=== PATIENT | male | born 1960 | race Caucasian/White ===

== ENCOUNTER 2017-04-01 12:33 | Day surgery (SDC) | payer OTHER ==
[2017-04-01] VITALS (19 sets, daily range): BP systolic 126–148; BP diastolic 80–91; PULSE 80–94; RESP 14–22; Ht 170.2 cm; Wt 99.8 kg
[~2017-04-01] VITALS: Ht 170.2 cm; Wt 99.8 kg
--- NOTE | 2017-04-01 15:11 | HPN ---
Date/Time of Note Date/Time of Note DATE: 04/01/17 TIME: 15:11 Interval H&P Admission Note Pt. seen H&P reviewed: No system changes JEANINE BAEZ Apr 01, 2017 15:11
[2017-04-01] MEDS ORDERED: LIDOCAINE 1% (MPF) 30 ML INJ ONE (15:24)
[2017-04-01] MEDS ORDERED: BUPIVACAINE 0.25% (MPF) 30 ML INJ ONE (15:24)
[2017-04-01] MEDS ORDERED: ROCURONIUM 50 MG INJ ONE (15:38)
[2017-04-01] MEDS ORDERED: NEOSTIGMINE 3 MG/3 ML SYRINGE ONE ×2 (15:38→17:18)
[2017-04-01] MEDS ORDERED: MEPERIDINE 100 MG INJ ONE (15:38)
[2017-04-01] MEDS ORDERED: LIDOCAINE 2% (SDV) 5 ML INJ ONE (15:38)
[2017-04-01] MEDS ORDERED: GLYCOPYRROLATE 1 MG INJ ONE (15:38)
[2017-04-01] MEDS ORDERED: SUCCINYLCHOLINE CHLORIDE 100 MG/5 ML SYG IV ONE (15:38)
[2017-04-01] MEDS ORDERED: PROPOFOL 20 ML ONE (15:38)
--- NOTE | 2017-04-01 16:03 | RADRPT ---
PROCEDURE: XR Chest. CLINICAL INDICATION: Preoperative. Right distal radius osteotomy. TECHNIQUE: Single frontal view. COMPARISON: None. FINDINGS: The lungs are clear. The heart size is normal. There is no pleural effusion. There is no pneumothorax. IMPRESSION: 1. Normal chest radiograph. RPTAT: QQ .Pranav Uribe MD, MD Date Time Electronically viewed and signed by .Pranav Uribe MD, MD on 04/01/2017 16:03 .R/
[2017-04-01] MEDS ORDERED: POLYMYXIN/BACITRACIN 1L IRRIG ONE (16:04)
[2017-04-01] MEDS ORDERED: LIDOCAINE 1% (MDV) 50 ML INJ INJ ONE (16:20)
[2017-04-01] MEDS ORDERED: HYDROmorphONE (0.2 MG/ML) 10ML SYG IV PRN ×3 (16:30)
[2017-04-01] MEDS ORDERED: EPHEDrine SULFATE 50 MG/5 ML SYG IV PRN (16:30)
[2017-04-01] MEDS ORDERED: FENTAnyl 50 MCG/ML VIAL IV PRN ×3 (16:30)
[2017-04-01] MEDS ORDERED: METOCLOPRAMIDE 10 MG INJ IV PRN (16:30)
[2017-04-01] MEDS ORDERED: MIDAZOLAM 1 MG/ML 2 ML INJ IV PRN (16:30)
[2017-04-01] MEDS ORDERED: DIPHENHYDRAMINE 50 MG INJ IV PRN (16:30)
[2017-04-01] MEDS ORDERED: hydrALAzine 20 MG INJ IV PRN (16:30)
[2017-04-01] MEDS ORDERED: ONDANSETRON 4 MG INJ IV PRN (16:30)
[2017-04-01] MEDS ORDERED: LABETALOL HCL 20MG INJ IV PRN (16:30)
[2017-04-01] MEDS ORDERED: OXYCODONE/ACETAMINOPHEN (5/325) TAB PO PRN ×2 (16:30)
[2017-04-01] MEDS ORDERED: MEPERIDINE 25 MG INJ IV PRN (16:30)
[2017-04-01] MEDS ORDERED: ONDANSETRON 4 MG INJ ONE (17:17)
[2017-04-01] MEDS ORDERED: CEFAZOLIN 1 GM INJ ONE (17:24)
[2017-04-01] MEDS ORDERED: BUPIVACAINE 0.5% (MPF) 30 ML INJ EPI ONE (17:35)
--- NOTE | 2017-04-01 17:50 | OPPN ---
Date/Time of Note Date/Time of Note DATE: 04/01/17 TIME: 17:48 Operative Report Preoperative Diagnosis right distal radius malunion, carpal tunnel syndrome, EPL tendon adhesion Postoperative Diagnosis right distal radius malunion, carpal tunnel syndrome, EPL tendon adhesion Operation/Procedure Performed open treatment of right distal radius malunion with osteotomy, plate and screws - right carpal tunnel release, open- right wrist EPL tendon tenolysis Surgeon see signature line inventory assistant none Anesthesia: general Estimated blood loss: 0 - 10 ml's Transfusion Required none Specimen none Grafts/Implants none Complications none JEANINE BAEZ Apr 01, 2017 17:50
--- NOTE | 2017-04-01 18:30 | OPR ---
DATE OF OPERATION: 04/01/2017 SURGEON: Kenneth Villaseñor MD ANESTHESIA: General. PREOPERATIVE DIAGNOSIS: 1. Right distal radius fracture malunion. 2. Right carpal tunnel syndrome. 3. Right wrist extensor pollicis longus tendon adhesions. POSTOPERATIVE DIAGNOSIS: 1. Right distal radius fracture malunion. 2. Right carpal tunnel syndrome. 3. Right wrist extensor pollicis longus tendon adhesions. OPERATION PERFORMED: 1. Open treatment of right distal radius fracture malunion with osteotomy, plate and screw fixation. 2. Right carpal tunnel release, open. 3. Right wrist extensor pollicis longus tenolysis. OPERATIVE FINDINGS: 1. Extension deformity at right distal radius with fracture malunion. 2. Compression of the right median nerve at the carpal tunnel. 3. Adhesions of the EPL tendon within the fracture site dorsally. INDICATIONS FOR PROCEDURE: A 56-year-old male with injury to the right wrist. He was seen in clinic and diagnosed with a distal radius fracture malunion. He had persistent pain due to the fracture malunion and difficulty with function due to limited flexion. He also had pain in the mid carpal joint. He had numbness in the right hand. He had difficulty with thumb range of motion. We discussed the options and patient elected to proceed with surgical intervention understanding the risks, benefits. OPERATIVE PROCEDURE: The patient was seen in the preoperative area. All further questions were answered. Again, he gave informed consent understanding the risks, benefits. He has taken to the operative suite and placed in supine position. He was placed under general anesthesia and tourniquet placed on the right upper extremity. Right upper extremity was prepped with ChloraPrep stick and draped in usual sterile fashion. Ancef 2 grams IV was given and Esmarch bandage was used to exsanguinate the extremity and tourniquet inflated to 250 mmHg. Attention was first turned to the carpal tunnel release and a 2 cm incision on the base of the palm was utilized with sharp dissection carried down through skin and subcutaneous tissue. The palmar aponeurosis was identified and was incised along its ulnar border. Retractors were deepened and the transverse carpal ligament was incised along its ulnar border approximately 3 mm radial to the hook of the hamate. The distal extent of the transverse carpal ligament was identified under direct visualization and was divided. Attention turned proximally. In the proximal extent, the transverse carpal ligament was divided under direct visualization. The wound was copiously irrigated. Skin closed with 4-0 nylon. Attention turned to the distal radius fracture and a modified volar Renato approach to the distal radius was utilized with sharp dissection carried down through skin and subcutaneous tissue. The FCR sheath was incised and FCR tendon retracted ulnarly. The FCR sub sheath incised and FPL tendon retracted ulnarly. The pronator quadratus was incised along its radial and distal borders using Bovie electrocautery and the fracture site was identified with approximately 25 degrees of extension of the fracture site beyond neutral. The fracture site was dissected around radially and ulnarly and attention was then turned to the dorsum of the wrist. A 2 cm incision of the dorsum of the wrist over Ole's tubercle was utilized. Sharp dissection was carried down through skin and subcutaneous tissue. The EPL tendon sheath was identified and was incised along its course obliquely around Ole's tubercle. The EPL tendon was brought out of its tunnel and there were fracture fragments and scar tissue at the deep aspect of the EPL tendon which were impinging. The EPL tendon was transposed and the floor was debrided for a smooth surface. Attention turned back volarly and an oscillating saw was used to create an osteotomy in line with the joint surface. An osteotome was used to complete the osteotomy dorsally and the fracture was brought in a more anatomic position. A [employer] distal radius plate was placed over the volar aspect of the distal radius and 4 locking screws were placed distally. The plate was brought down to the volar shaft and 2 cortical screws were placed into the shaft. X- ray imaging showed appropriate hardware placement and bony alignment with interval improvement in the tilt with 5 degrees of volar tilt to the joint surface. Additional cortical and locking screws were placed proximally and distally. Final x-ray imaging showed appropriate hardware placement and bony alignment. Wound was copiously irrigated and skin closed with 4-0 nylon. The dorsum of the wound was also visualized and there were no bony spikes. The EPL tendon was safe and was left transposed. The wound was copiously irrigated and the dorsal wound was closed with 4-0 nylon. Xeroform placed on the wound followed by sterile gauze, Webril, and a short-arm splint. Tourniquet deflated after 78 minutes and patient was awakened from anesthesia. He was taken to the postoperative suite in stable condition. Tolerated procedure well without complication. SPECIMENS: None. ESTIMATED BLOOD LOSS: 5 mL. COUNTS: Sponge and needle counts correct. TOURNIQUET TIME: 78 minutes. FLUOROSCOPIC IMAGES: 17. FLUOROSCOPIC TIME: 0.32 seconds. CONDITION ON DISCHARGE: Stable. Dictated By: Kenneth Villaseñor MD /lit/desean /Document#: [id number] HARPREET
--- NOTE | 2017-04-02 16:26 | RADRPT ---
PROCEDURE: Intraoperative imaging of the right wrist with fluoroscopy. CLINICAL INDICATION: Right wrist intraoperative evaluation Intraoperative. TECHNIQUE: 17 images of the right wrist were obtained in the operating room with an image intensif ier. No radiologist was in attendance. 53 seconds of fluoroscopy time was used. COMPARISON: No prior study is available for comparison. FINDINGS: Intraoperative evaluation of plate and screw fixation of the distal radius is identified IMPRESSION: 1. Satisfactory intraoperative imaging of the right wrist. Please see separately dictated operative note for full evaluation. RPTAT: UU .Peewee Ordonez MD, MD Date Time Electronically viewed and signed by .Peewee Ordonez MD, on 04/02/2017 16:26 .K/
== END 2017-04-01 19:30 | disposition home or self-care (01) ==
LOC: SDS 12:33
PROVIDERS: ATTEND Orthopaedic Surgery Hand Surgery
DX: S52.501P Unspecified fracture of the lower end of right radius, subsequent encounter for closed fracture with malunion (principal); X58.XXXD Exposure to other specified factors, subsequent encounter; G56.01 Carpal tunnel syndrome, right upper limb; M65.841 Other synovitis and tenosynovitis, right hand; Z83.3 Family history of diabetes mellitus
CPT/HCPCS: 25400; 64721; 71010; 73110; 82962; J0690; J2175; J2405; J2710; J3010; Z7512; Z7610

== ENCOUNTER 2017-12-03 10:48 | Day surgery (SDC) | END 2017-12-03 17:45 | disposition home or self-care (01) ==